=== PATIENT | female | born 1950 | race Caucasian/White ===

== ENCOUNTER → 2019-05-28 | Outpatient (CLI) | payer MEDICARE | END | disposition home or self-care (01) | LOC: LABPAT 17:14 | PROVIDERS: ATTEND Orthopaedic Surgery | DX: Z01.812 Encounter for preprocedural laboratory examination (principal) | CPT/HCPCS: 87070 ==

== ENCOUNTER 2020-10-15 12:24 | Inpatient (IN) | payer MEDICARE ==
--- NOTE | 2020-10-15 12:43 | ED ---
Fall HPI - General Stated Complaint: fall Time Seen by Provider: 10/15/20 12:24 Source: patient, EMS, RN notes reviewed Mode of arrival: EMS - History of Present Illness Initial Comments: This is a 69-year-old female history of chronic low back pain who just had an MRI this morning to evaluate the back when she lost her footing and fell and complains of severe left-sided hip pain. No head neck or other back pain no other complaints at this time. She was brought in by EMS was given pain medication he states this did help somewhat and does not require anything else at this time. MD Complaint: fall - Related Data Home Medications Medication Instructions Recorded Confirmed Albuterol Inhaler [Ventolin Hfa 2 puff INHALATION RT-QID PRN 10/15/20 10/15/20 Inhaler] Cyclobenzaprine [Flexeril] 10 mg PO HS 10/15/20 10/15/20 Furosemide [Lasix] 20 mg PO DAILY PRN 10/15/20 10/15/20 Gabapentin [Neurontin] 800 mg PO TID 10/15/20 10/15/20 HYDROcodone/APAP 5-325MG [[place] 1.5 tab PO TID PRN 10/15/20 10/15/20 5-325] Allergies Allergy/AdvReac Type Severity Reaction Status Date / Time adhesive Allergy Unknown Verified 10/15/20 13:33 latex Allergy Unknown Verified 10/15/20 13:33 Penicillins Allergy Unknown Verified 10/15/20 13:33 Review of Systems ROS Statement: Those systems with pertinent positive or pertinent negative responses have been documented in the HPI. ROS Other: All systems not noted in ROS Statement are negative. Past Medical History Additional Past Medical History / Comment(s): chronic neck, back and right knee pain History of Any Multi-Drug Resistant Organisms: None Reported Past Surgical History: Section Past Psychological History: No Psychological Hx Reported Smoking Status: Current every day smoker Past Alcohol Use History: None Reported Past Drug Use History: None Reported General Exam - General Exam Comments Initial Comments: This is a well-developed well-nourished awake alert oriented 3 female with a [place] Coma Scale of 15 Limitations: no limitations General appearance: alert, anxious, in distress Head exam: Present: atraumatic, normocephalic, normal inspection Eye exam: Present: normal appearance, PERRL, EOMI. Absent: scleral icterus, conjunctival injection, periorbital swelling ENT exam: Present: normal exam, mucous membranes moist Neck exam: Present: normal inspection. Absent: tenderness, meningismus, lymphadenopathy Respiratory exam: Present: normal lung sounds bilaterally. Absent: respiratory distress, wheezes, rales, rhonchi, stridor Cardiovascular Exam: Present: regular rate, normal rhythm, normal heart sounds. Absent: systolic murmur, diastolic murmur, rubs, gallop, clicks GI/Abdominal exam: Present: soft, normal bowel sounds. Absent: distended, tenderness, guarding, rebound, rigid Extremities exam: Present: tenderness, normal capillary refill, other (Is palpation over the left hip with flexion of the hip some external rotation was limited mobility secondary to pain.). Absent: full ROM, pedal edema, joint swelling, calf tenderness Back exam: Present: normal inspection Neurological exam: Present: alert, oriented X3, CN II-XII intact Psychiatric exam: Present: normal affect, normal mood Skin exam: Present: warm, dry, intact, normal color. Absent: rash Course Vital Signs 10/15/20 12:34 Temperature 98.1 F Pulse Rate 90 Respiratory 20 Rate Blood Pressure 128/80 O2 Sat by Pulse 88 L Oximetry Medical Decision Making - Medical Decision Making I did discuss findings with patient family as well as with neck branch who is covering for Dr. Tomlinson patient will be admitted with medical consultation for surgical clearance. - Radiology Data Radiology results: report reviewed (Imaging reviewed evidence of a surgical neck fracture left hip subcapital please see the complete report), image reviewed Disposition Clinical Impression: Fall, Closed left hip fracture Disposition: ADMITTED IP TO THIS HOSP Condition: Fair Referrals: Marya Meyer MD [Primary Care Provider] - 1-2 days
--- NOTE | 2020-10-15 13:27 | XR ---
EXAMINATION TYPE: XR chest 1V DATE OF EXAM: 10/15/2020 COMPARISON: 06/11/2019 HISTORY: 69-year-old female trauma after fall TECHNIQUE: Single frontal view of the chest is obtained. FINDINGS: Heart borderline enlarged. Tortuous/ectatic thoracic aorta, appearance increased from 06/11/2019, suspe ct projectional. Stable focal peripheral right basilar density, likely scarring. No pleural effusion or pneumothorax. Partially visualized ACDF hardware. IMPRESSION: When the patient is able, recommend dedicated high quality PA view of the chest to exclude any new ec coreen of the thoracic aorta. Suspect this to be due to magnification from AP technique and patient po sitioning. Otherwise, no acute process seen.
--- NOTE | 2020-10-15 13:29 | XR ---
EXAMINATION TYPE: AP view pelvis and 2 views left hip DATE OF EXAM: 10/15/2020 Comparison: None Clinical History: 69-year-old female with pain after Trauma Findings: Impacted, angulated, and proximally migrated transcervical femoral neck fracture. Mild degenerative s purring of both hips. Limited due to osteopenia and large patient body habitus. Impression: Impacted, angulated, and approximately migrated transcervical left femoral neck fracture. Underlying mild bilateral hip OA.
[2020-10-15] MEDS ORDERED: HYDROmorphone 1 MG/ML 1 ML SYRINGE IVP STA (14:02)
[2020-10-15] MEDS ORDERED: NALOXONE 0.4 MG/ML 1 ML VIAL IV PRN (14:07)
[2020-10-15] MEDS ORDERED: ALBUTEROL HFA INHALER INHALATION PRN (14:09)
[2020-10-15 14:33] LABS: Basophils # (A) 0.1 k/uL (0-0.2); Basophils % (A) 0 %; Eosinophils # (A) 0.4 k/uL (0-0.7); Eosinophils % (A) 3 %; HCT 38.4 % (34.0-46.0); Lymphocytes # (A) 1.5 k/uL (1.0-4.8); Lymphocytes % (A) 11 %; MCHC 33.9 g/dL (31.0-37.0); MCV 94.5 fL (80.0-100.0); Mean Platelet Volume 7.4; Monocytes # (A) 0.7 k/uL (0-1.0); Monocytes % (A) 5 %; Neutrophils # (A) 10.4 k/uL (1.3-7.7); Neutrophils % (A) 79 %; Platelet Count 296 k/uL (150-450); RBC 4.07 m/uL (3.80-5.40); RDW 12.6 % (11.5-15.5); WBC 13.1 k/uL (3.8-10.6)
[2020-10-15 14:44] LABS: Prothrombin Time 10.5 sec (9.0-12.0)
[2020-10-15 14:45] LABS: Partial Thromboplastin Time 23.2 sec (22.0-30.0)
[2020-10-15 14:48] LABS: ALT 15 U/L (4-34); AST 29 U/L (14-36); African American GFR (CKD) >90 (>60 ml/min/1.73 sqM); Albumin 3.9 g/dL (3.5-5.0); Alkaline Phosphatase 93 U/L (38-126); Anion Gap 5 mmol/L; Blood Urea Nitrogen 7 mg/dL (7-17); Calcium 9.1 mg/dL (8.4-10.2); Carbon Dioxide 30 mmol/L (22-30); Chloride 105 mmol/L (98-107); Creatine Kinase 51 U/L (30-135); Glucose 106 mg/dL (74-99); Non-African American GFR(CKD) 78 (>60 ml/min/1.73 sqM); Potassium 3.8 mmol/L (3.5-5.1); Sodium 140 mmol/L (137-145); Total Bilirubin 0.3 mg/dL (0.2-1.3); Total Protein 6.4 g/dL (6.3-8.2)
--- NOTE | 2020-10-15 14:53 | P.CONS ---
History of Present Illness - Reason for Consult Consult date: 10/15/20 Preoperative clearance - Chief Complaint Left hip pain - History of Present Illness This is a 69-year-old female with past medical history noted below who presented to the emergency room with left hip pain. Patient has problems with chronic low back pain and was scheduled for an MRI this afternoon that she sustained a fall at MRI facility and landed on her left side and immediately started having a lot of pain. She was brought into the emergency room and was found to have evidence of left hip fracture on x-ray. She'll be admitted to orthopedic with possible surgical intervention tomorrow. I was asked to see her for preoperative clearance. Patient is complaining of pain in her left hip mostly when she moves around in bed. She otherwise denies any chest pain or shortness of breath. Patient does not have any cardiac history. She said that once her doctor told her she may have had heart attack years ago according to EKG reading. Patient herself told me that she was never hospitalized for heart attack. She denies any history of CHF, diabetes, hypertension, or chronic kidney disease. She is only able to ambulate using a walker secondary to chronic low back pain but denies any exertional dyspnea or chest pain. Review of Systems Review of system: 14 points review of systems were obtained and were negative except to what were mentioned in the HPI. Past Medical History Additional Past Medical History / Comment(s): chronic neck, back and right knee pain History of Any Multi-Drug Resistant Organisms: None Reported Past Surgical History: Section Past Psychological History: No Psychological Hx Reported Smoking Status: Current every day smoker Past Alcohol Use History: None Reported Past Drug Use History: None Reported Medications and Allergies Home Medications Medication Instructions Recorded Confirmed Type Albuterol Inhaler [Ventolin Hfa 2 puff INHALATION RT-QID PRN 10/15/20 10/15/20 History Inhaler] Cyclobenzaprine [Flexeril] 10 mg PO HS 10/15/20 10/15/20 History Furosemide [Lasix] 20 mg PO DAILY PRN 10/15/20 10/15/20 History Gabapentin [Neurontin] 800 mg PO TID 10/15/20 10/15/20 History HYDROcodone/APAP 5-325MG [[place] 1.5 tab PO TID PRN 10/15/20 10/15/20 History 5-325] Allergies Allergy/AdvReac Type Severity Reaction Status Date / Time adhesive Allergy Unknown Verified 10/15/20 13:33 latex Allergy Unknown Verified 10/15/20 13:33 Penicillins Allergy Unknown Verified 10/15/20 13:33 Physical Exam Vitals: Vital Signs Temp Pulse Resp BP Pulse Ox 10/15/20 12:34 98.1 F 90 20 128/80 88 L Intake and Output 10/14/20 10/15/20 10/15/20 22:59 06:59 14:59 Other: Weight 76.43 kg General: The patient is awake and alert, in no distress Eye: there is normal conjunctiva bilaterally. Neck: The neck is supple, there is no JVD. Cardiovascular: Normal S1-S2, no S3-S4, no murmurs. Respiratory: Lungs clear to auscultation bilaterally Gastrointestinal: Abdomen is soft, nontender Musculoskeletal: There is no pedal edema. Neurological:. Speech is normal. Skin: Skin is warm and dry Results CBC & Chem 7: 10/15/20 14:15 10/15/20 14:15 Labs: Abnormal Lab Results - Last 24 Hours (Table) 10/15/20 10/15/20 Range/Units 14:15 14:15 WBC 13.1 H (3.8-10.6) k/uL Neutrophils # 10.4 H (1.3-7.7) k/uL Glucose 106 H (74-99) mg/dL Assessment and Plan Assessment: 1. Preoperative clearance: Patient is at an acceptable risk for low risk orthopedic surgery according to the RCRI score. 2. Left hip fracture, management per orthopedic surgery 3. Chronic low back pain 4. Tobacco abuse, counseled extensively to quit. Nicotine patch ordered Today, I reviewed her medication list and lab work results. Twelve-lead EKG showed normal sinus rhythm with no acute findings. Pain control and DVT prophylaxis per orthopedic. Thank you very much for the consultation. I will continue to follow up on the patient closely with you.
[2020-10-15 15:15] LABS: Appearance,Urine Clear (Clear); Bacteria,Urine Rare /hpf; Bilirubin,Urine Negative (Negative); Blood,Urine Negative (Negative); Color,Urine Yellow; Glucose,Urine (UA) Negative (Negative); Ketones,Urine Negative (Negative); Leukocyte Esterase,Urine Small (Negative); Mucus,Urine Rare /hpf; Nitrite,Urine Negative (Negative); Protein,Urine Negative (Negative); RBC,Urine 1 /hpf (0-5); Specific Gravity,Urine 1.015 (1.001-1.035); Squamous Epithelial Cell,Urine <1 /hpf (0-4); Urobilinogen,Urine <2.0 mg/dL (<2.0); WBC,Urine 1 /hpf (0-5)
[2020-10-15] MEDS: HYDROmorphone 1 MG/ML 1 ML SYRINGE IVP PRN ×2 (15:43→19:51)
--- NOTE | 2020-10-15 16:34 | P.HPOR ---
History of Present Illness H&P Date: 10/15/20 Chief Complaint: Left femoral neck fracture Patient is a 69-year-old female who presented to [facility] initially today for an MRI of her lumbar and cervical spine that was ordered by a different provider. While in the hospital, the patient did fall in the MRI area directly on her left side. She was unable to weight-bear at that time, so she was brought to the emergency room for evaluation. Upon arrival to the emergency room, imaging and lab tests are done. Images demonstrated a displaced left subcapital femur fracture. I was contacted by the emergency room staff and was able to review the case and discussed with attending Dr. Mcginnis. I was unable to evaluate patient in the emergency room at bedside, her was present at bedside. She is resting comfortably in bed, any movement though reproduces severe pain in the proximal aspect of the left lower extremity. Patient denies any pain involving the right lower extremity, bilateral upper extremities, new onset or acute cervical, thoracic or lumbar pain. Patient has a known history of cervical and lumbar pain. She admits to a previous cervical fusion done back in 2017 by a doctor in [facility]. She has been seeing a pain management doctor in [facility] for her chronic cervical and lumbar pain. She does take [place], Flexeril and gabapentin for this. Patient denies any previous orthopedic surgery involving the left lower extremity. Patient currently has no headaches, lightheadedness, chest pain, shortness of breath, nausea vomiting, fever or chills, loss of bowel or bladder function, genital or perianal numbness or tingling. Review of Systems Constitutional: Reports as per HPI Past Medical History Additional Past Medical History / Comment(s): chronic neck, back and right knee pain History of Any Multi-Drug Resistant Organisms: None Reported Past Surgical History: Section Past Psychological History: No Psychological Hx Reported Smoking Status: Current every day smoker Past Alcohol Use History: None Reported Past Drug Use History: None Reported Medications and Allergies Home Medications Medication Instructions Recorded Confirmed Type Albuterol Inhaler [Ventolin Hfa 2 puff INHALATION RT-QID PRN 10/15/20 10/15/20 History Inhaler] Cyclobenzaprine [Flexeril] 10 mg PO HS 10/15/20 10/15/20 History Furosemide [Lasix] 20 mg PO DAILY PRN 10/15/20 10/15/20 History Gabapentin [Neurontin] 800 mg PO TID 10/15/20 10/15/20 History HYDROcodone/APAP 5-325MG [[place] 1.5 tab PO TID PRN 10/15/20 10/15/20 History 5-325] Allergies Allergy/AdvReac Type Severity Reaction Status Date / Time adhesive Allergy Unknown Verified 10/15/20 13:33 latex Allergy Unknown Verified 10/15/20 13:33 Penicillins Allergy Unknown Verified 10/15/20 13:33 Physical Examination Left lower extremity: There are no obvious open lesions or sores visualized throughout the extremity. There is obvious shortening and external rotation of the leg compared to the contralateral side There is mild ecchymosis and soft tissue swelling of the proximal extremity Logroll maneuver reproduces severe pain in the groin, she is unable to straight leg raise. Range of motion of the knee was not assessed. Plantar flexion, dorsiflexion, EHL, FHL are intact. No obvious strength deficits appreciated with plantar flexion, dorsiflexion, EHL, FHL, strength testing was not assessed of the knee or hip. Compartments of the lower leg are soft, calf is soft, no tenderness with palpation. Sensory exam light touch throughout the extremity is intact, dorsalis pedis pulses 2+. General orthopedic exam: Range of motion in all major muscle groups is intact of the bilateral upper extremities, there is no point tenderness appreciated throughout the exam. Radial and ulnar pulses are 2+ bilaterally No skin lesions or areas of ecchymosis are present in the right lower extremity, she has no point tenderness throughout exam. Range of motion is intact in all major muscle groups of the right lower extremity. There is no appreciated strength deficits appreciated with hip flexion, knee flexion, knee extension, plantar flexion, dorsiflexion, EHL, FHL. Calf is soft, no tenderness with palpation. Her sensory exam to light touch is intact throughout the extremity. Her dorsalis pedis pulses 2+ Results - Labs Labs: Abnormal Lab Results - Last 24 Hours (Table) 10/15/20 10/15/20 10/15/20 Range/Units 14:15 14:15 14:15 WBC 13.1 H (3.8-10.6) k/uL Neutrophils # 10.4 H (1.3-7.7) k/uL Glucose 106 H (74-99) mg/dL Ur Leukocyte Esterase Small H (Negative) Urine Bacteria Rare H (None) /hpf Urine Mucus Rare H (None) /hpf H & H 10/15/20 Range/Units 14:15 Hgb 13.0 (11.4-16.0) gm/dL Hct 38.4 (34.0-46.0) % Coagulation 10/15/20 Range/Units 14:15 INR 1.0 (<1.2) Result Diagrams: 10/15/20 14:15 10/15/20 14:15 - Diagnostic results Hip x-ray: report reviewed, image reviewed (Pelvis x-ray along with AP x-ray of the left hip are obtained. Images demonstrate an obvious displaced subcapital femur fracture on the left side.) Assessment and Plan Assessment: Displaced left subcapital femur fracture Status post fall from standing Chronic cervical and lumbar pain, history of previous cervical fusion Other medical comorbidities Plan: I was able to discuss the case, including with physical exam findings and imaging studies my attending Dr. Mcginnis. We would like to proceed with surgical intervention, more specifically a left total hip arthroplasty. We plan to proceed with this on 10/16/2020. Risk and benefits of the procedure were discussed with the patient, this including but not excluding infection, blood loss, neurovascular injury, development of blood clots, need for subsequent surgery, and adequate healing of bone. Patient and are in good understanding would like to proceed. Obtain consent Nothing by mouth after midnight Urinary catheter placement Nonweightbearing left lower extremity GI and DVT prophylaxis, we'll begin subcu medication after surgery Other biomedical analytical scientist and recommendations PT/OT evaluation after surgery Discharge planning: Pending outpatient advances during hospital stay, may consider discharge home with home health care Time with Patient: Less than 30
[2020-10-15] MEDS: SODIUM CHLORIDE 0.9% 1,000 ML IV SCH ×2 (19:15→23:00)
[2020-10-15] MEDS: CYCLOBENZAPRINE 10 MG TAB PO SCH (20:59)
[2020-10-15] MEDS ORDERED: MORPHINE SULFATE 2 MG/ML SYRINGE IVP STA (22:24)
[2020-10-16] MEDS ORDERED: LORazepam 1 MG TAB PO STA (00:57)
[2020-10-16] MEDS: NICOTINE 7MG/24HR PATCH TRANSDERM SCH (01:23)
[2020-10-16] MEDS: HYDROmorphone 1 MG/ML 1 ML SYRINGE IVP PRN ×4 (01:27→23:17)
[2020-10-16] MEDS: SODIUM CHLORIDE 0.9% 1,000 ML IV SCH (06:25)
[2020-10-16] MEDS ORDERED: HYDROmorphone 1 MG/ML 1 ML SYRINGE IVP STA (08:22)
[2020-10-16] MEDS ORDERED: LACTATED RINGERS 1,000 ML IV ONE ×2 (10:52→12:56)
[2020-10-16] MEDS ORDERED: ONDANSETRON 4 MG/2 ML VIAL ONE (10:56)
[2020-10-16] MEDS ORDERED: ONDANSETRON 4 MG/2 ML VIAL IVP ONE (10:59)
[2020-10-16] MEDS ORDERED: fentaNYL (PF) 50 MCG/ML 2 ML AMP IVP ONE (11:00)
[2020-10-16] MEDS ORDERED: DEXAMETHASONE SOD PHOSPHATE 4 MG/ML 1 ML VIAL IVP ONE (11:00)
[2020-10-16] MEDS ORDERED: TRANEXAMIC ACID 1,000 MG in SODIUM CHLORIDE 0.9% 100 ML IVPB PRN (11:40)
[2020-10-16] MEDS ORDERED: MIDAZOLAM 2 MG/2 ML VIAL ONE (12:09)
[2020-10-16] MEDS ORDERED: PHENYLEPHRINE-0.9% NACL SYG 1,000 MCG/10 ML SYRINGE ONE (12:09)
[2020-10-16] MEDS ORDERED: TRANEXAMIC ACID 1,000 MG/10 ML VIAL ONE (12:09)
[2020-10-16] MEDS ORDERED: KETAMINE 10 MG/ML 20 ML VIAL ONE (12:09)
[2020-10-16] MEDS ORDERED: SODIUM CHLORIDE 0.9% 100 ML BAG ONE (12:09)
[2020-10-16] MEDS ORDERED: fentaNYL (PF) 50 MCG/ML 2 ML AMP ONE (12:09)
[2020-10-16] MEDS ORDERED: PROPOFOL 10 MG/ML 20 ML VIAL IV ONE (12:09)
[2020-10-16] MEDS ORDERED: CLINDAMYCIN 150 MG/ML 4 ML VIAL IVPB ONE (12:34)
[2020-10-16] MEDS ORDERED: ceFAZolin 1,000 MG in SODIUM CHLORIDE 0.9% 1,000 ML IRRIGATION ONE (12:48)
[2020-10-16] MEDS ORDERED: CLINDAMYCIN 600 MG in SODIUM CHLORIDE 0.9% 1,000 ML IRRIGATION ONE (12:48)
[2020-10-16] MEDS ORDERED: HYDROcodone/APAP 7.5-325MG 1 EACH TAB PO PRN (13:45)
[2020-10-16] MEDS ORDERED: HYDROmorphone 0.2 MG/1 ML SYRINGE IVP PRN (13:45)
[2020-10-16] MEDS ORDERED: NALOXONE 0.4 MG/ML 1 ML VIAL IV PRN (13:45)
--- NOTE | 2020-10-16 14:06 | P.OP ---
Date of Procedure: 10/16/20 Preoperative Diagnosis: Displaced left subcapital femoral neck fracture Postoperative Diagnosis: Same Procedure(s) Performed: Left total hip arthroplastypress-fitlateral approach Implants: [employer] [place] size 12 high offset press-fit collared femoral stem, 36+5 cobalt chrome femoral head, 52 mm [place] acetabular shell with neutral polyethylene liner. Anesthesia: spinal Surgeon: Adeel Mcginnis Night Supervisor #1: Delroy Toure Estimated Blood Loss (ml): 200 Pathology: other (Femoral head) Condition: stable Disposition: PACU Indications for Procedure: The patient 69-year-old female presents after falling injuring her left hip and was noted have a displaced left subcapital femoral neck fracture. A discussion of the risks and benefits of operative intervention was made with patient. She opted to proceed with surgery. Operative options were discussed. She opted to proceed with total hip arthroplasty. Specific risks to include infection, neurovascular injury, development of blood clots, possible leg length discrepancy, possible instability need for subsequent procedures was discussed. Informed consent was obtained. Operative Findings: As below Description of Procedure: The patient was brought to the operating room, and after induction of spinal anesthesia was placed in a lateral decubitus position. The bony prominences were appropriately padded. The pelvis was stable perpendicular to the floor with a pegboard. The left lower extremity was prepped and draped in normal fashion. A 12 cm incision was then made centered over the greater trochanter extending superiorly to level the ASIS and distally in line with the femoral shaft. The skin and subcutaneous tissues were divided sharply. Electrocautery was used for hemostasis. The fascia vika and gluteus juilan fascia was split in line with the skin incision. The muscle fibers were bluntly dissected proximally. A self-retaining retractor was placed. The anterior and posterior margins of the gluteus medius muscles identified and the anterior two thirds was detached from the greater trochanter with electrocautery. The gluteus minimus tendon was identified and detached in a similar fashion. A wide capsulotomy was performed. The femoral neck fracture was identified in the lower neck cut was made approximately 1 1/2 cm above the level of the lesser trochanter with a sagittal saw at a 45 the shaft. The head was then extracted with a corkscrew. Attention was then paid towards preparing the acetabular. Anterior and posterior retractors were placed. The remaining capsular labral tissues debrided sharply clearly defining the acetabular margins. Began reaming with a 45 mm reamer taking care to initially medialize, then reaming at 45 of abduction and 20 of anteversion. Sequential reaming is performed up to 51 mm. This was down to bleeding bony surface. A trial 52 mm acetabular shell was inserted at 45 of abduction and 20 of anteversion. This was fully seated. There was good rim fit and stability. A neutral polyethylene liner was then impacted. Care taken to avoid any soft tissue interposition. Attention was then paid towards preparing the proximal femur. A box chisel was used to open the metaphyseal region. A canal finder was used to find the femoral canal. Sequential broaching was performed up to a size 12. This is placed in 15 of anteversion with the leg perpendicular floor judging off the trans-epicondylar axis. There is good rotational stability. A calcar mill was used to fashion the medial calcar. A trial standard neck along with a 36 mm + 5 trial head was placed. The hip was gently reduced. It was taken through range of motion. I felt to be stable in flexion and extension with internal and external rotation. I felt there was adequate orthodoxy of soft tissue tension. The hip was gently dislocated. The trial components removed. Pulsatile lavage was utilized. The final size 12 high offset collared femoral stem was inserted again with the leg perpendicular to the floor in 15 of anteversion. Again there was good rotational stability. A 36 mm + 5 cobalt chrome femoral head was gently impacted. The hip was gently reduced. Again it was taken through motion and felt to be stable in flexion and extension with internal and external rotation. Pulsatile lavage was again utilized. With the leg in abduction the gluteus minimus and medius tendons reattached to the greater trochanter with #2 Ethibond suture. There was minimal drainage therefore a deep drain was not placed. The fascia vika and gluteus julian fascia was closed with #2 Ethibond suture. The subcutaneous tissues were reapproximated interrupted 2-0 Vicryl sutures. The skin was reapproximated with 3-0 subcuticular strata fix suture. Skin tape and adhesive was applied. A sterile dressing was applied. The patient was awoken from sedation and transferred to recovery room in good condition. Blood loss was estimated 200 mL. No complications were incurred. Sponge and needle counts were correct in the case. Delroy YEBOAH assisted during the major composes case to include exposure, implantation, and closure.
--- NOTE | 2020-10-16 14:30 | XR ---
Limited left hip HISTORY: Status post left hip hemiarthroplasty Single frontal view of the left hip Patient shows post left hip arthroplasty change. There is lucency in the soft tissues. Anatomic align ment is present. Bone mineralization is reduced. IMPRESSION: Orthopedic follow-up.
[2020-10-16 15:01] LABS: Urine Alcohol Negative (Negative); Urine Barbiturate Negative (Negative); Urine Cocaine Negative (Negative); Urine Methadone Negative (Negative); Urine Opiates Positive (Negative); Urine Phencyclidine Negative (Negative)
--- NOTE | 2020-10-16 15:20 | P.PN ---
Subjective Progress Note Date: 10/16/20 Patient is scheduled for surgery today. No acute events overnight. Objective - Vital Signs Vital signs: Vital Signs Temp 98 F 10/16/20 14:01 Pulse 106 H 10/16/20 14:31 Resp 16 10/16/20 14:31 BP 109/59 10/16/20 14:31 Pulse Ox 95 10/16/20 14:31 Intake & Output 10/15/20 10/16/20 10/16/20 18:59 06:59 18:59 Intake Total 1101 Output Total 1999 275 Balance -1999 826 Weight 76.43 kg 76.43 kg 76.43 kg Intake: IV 1101 Output: Urine 1999 75 Estimated Blood Loss 200 Other: Voiding Method Indwelling Catheter Indwelling Catheter - Exam General: The patient is awake and alert, in no distress Eye: there is normal conjunctiva bilaterally. Neck: The neck is supple, there is no JVD. Cardiovascular: Normal S1-S2, no S3-S4, no murmurs. Respiratory: Lungs clear to auscultation bilaterally Gastrointestinal: Abdomen is soft, nontender Musculoskeletal: There is no pedal edema. Neurological:. Speech is normal. Skin: Skin is warm and dry - Labs CBC & Chem 7: 10/15/20 14:15 10/15/20 14:15 Labs: Abnormal Lab Results - Last 24 Hours (Table) 10/15/20 Range/Units 23:36 Urine Opiates Screen Positive A (Negative) ng/mL Assessment and Plan Assessment: 1. Left hip fracture, management per orthopedic surgery. Plan for OR today. 2. Chronic low back pain 3. Tobacco abuse, counseled extensively to quit. Nicotine patch ordered Today, I reviewed her medication list and lab work results. Continue current regimen. Pain control and DVT prophylaxis per orthopedic. I will continue to follow up on the patient closely with you.
[2020-10-16] MEDS: GABAPENTIN 400 MG CAP PO SCH ×2 (16:56→20:49)
[2020-10-16] MEDS: CYCLOBENZAPRINE 10 MG TAB PO SCH (20:49)
[2020-10-16] MEDS: SENNOSIDES-DOCUSATE SODIUM 1 EACH TAB PO SCH (20:49)
[2020-10-16] MEDS: ENOXAPARIN 40 MG/0.4 ML SYRINGE SQ SCH (23:16)
[2020-10-17] MEDS: HYDROmorphone 1 MG/ML 1 ML SYRINGE IVP PRN ×3 (03:28→10:47)
[2020-10-17 05:24] VITALS: RESP 18
[2020-10-17 07:40] LABS: INR 1.1 (<1.2); Prothrombin Time 11.5 sec (9.0-12.0)
[2020-10-17 07:52] LABS: Basophils % (A) 0 %; Eosinophils % (A) 0 %; HCT 33.8 % (34.0-46.0); HGB 11.2 gm/dL (11.4-16.0); Lymphocytes # (A) 1.8 k/uL (1.0-4.8); Lymphocytes % (A) 10 %; MCH 31.7 pg (25.0-35.0); MCHC 33.1 g/dL (31.0-37.0); MCV 95.5 fL (80.0-100.0); Mean Platelet Volume 8.3; Monocytes # (A) 1.2 k/uL (0-1.0); Monocytes % (A) 6 %; Neutrophils # (A) 14.7 k/uL (1.3-7.7); Neutrophils % (A) 82 %; Platelet Count 268 k/uL (150-450); RBC 3.54 m/uL (3.80-5.40); RDW 12.9 % (11.5-15.5)
[2020-10-17] MEDS: HYDROcodone/APAP 5-325MG 1 EACH TAB PO PRN ×2 (08:06→13:27)
[2020-10-17] MEDS: GABAPENTIN 400 MG CAP PO SCH ×3 (08:07→20:37)
[2020-10-17] MEDS: NICOTINE 7MG/24HR PATCH TRANSDERM SCH (08:07)
--- NOTE | 2020-10-17 09:28 | P.PN ---
Subjective Progress Note Date: 10/17/20 Principal diagnosis: Status post left total hip arthroplasty patient was examined at bedside today, she is resting in her hospital chair. She was just up working with physical therapy. She is having minimal pain in the left hip at this time. She denies any headaches, lightheadedness, chest pain, new onset shortness of breath. She is passing gas, urinary catheter still in place. Objective - Vital Signs Vital signs: Vital Signs Temp 98.4 F 10/17/20 04:12 Pulse 120 H 10/17/20 04:12 Resp 18 10/17/20 04:12 BP 116/74 10/17/20 04:12 Pulse Ox 92 L 10/17/20 04:12 Intake & Output 10/16/20 10/17/20 10/17/20 18:59 06:59 18:59 Intake Total 1101 Output Total 775 550 Balance 326 -550 Weight 76.43 kg Intake: IV 1101 Output: Urine 575 550 Estimated Blood Loss 200 Other: Voiding Method Indwelling Catheter Indwelling Catheter - Exam Left lower extremity: Incision is clean, dry, and intact. The exofin fusion tape is in good condition. There is minimal soft tissue swelling and ecchymosis surrounding the medial and lateral aspects of the incision. Calf is soft, no tenderness with palpation. Plantar flexion, dorsiflexion, EHL, FHL are intact. Sensory exam to light touch throughout the extremity is intact, dorsal pedis pulses 2+. - Labs CBC & Chem 7: 10/17/20 06:41 10/15/20 14:15 Labs: Abnormal Lab Results - Last 24 Hours (Table) 10/15/20 10/17/20 Range/Units 23:36 06:41 WBC 18.0 H (3.8-10.6) k/uL RBC 3.54 L (3.80-5.40) m/uL Hgb 11.2 L (11.4-16.0) gm/dL Hct 33.8 L (34.0-46.0) % Neutrophils # 14.7 H (1.3-7.7) k/uL Monocytes # 1.2 H (0-1.0) k/uL Urine Opiates Screen Positive A (Negative) ng/mL Assessment and Plan Assessment: Postoperative day 1 status post left total hip arthroplasty Plan: Pain control, continue current medication GI and DVT prophylaxis, continue current medication Postoperative dressing was changed today, dressing changes every 2 days Encourage incentive spirometer Weight-bear as tolerated with walker, continue working with physical therapy Other medical specialty recommendations Discharge planning: Depending on how patient progresses over the weekend, may co nsider discharge to rehab versus home with home health care Time with Patient: Less than 30
--- NOTE | 2020-10-17 10:27 | P.PN ---
Subjective Progress Note Date: 10/17/20 Patient is doing well today. She was up in the chair when I saw her. Her pain is relatively well-controlled. Objective - Vital Signs Vital signs: Vital Signs Temp 98.4 F 10/17/20 04:12 Pulse 120 H 10/17/20 08:40 Resp 18 10/17/20 08:40 BP 116/74 10/17/20 04:12 Pulse Ox 92 L 10/17/20 04:12 Intake & Output 10/16/20 10/17/20 10/17/20 18:59 06:59 18:59 Intake Total 1101 Output Total 775 550 Balance 326 -550 Weight 76.43 kg Intake: IV 1101 Output: Urine 575 550 Estimated Blood Loss 200 Other: Voiding Method Indwelling Catheter Indwelling Catheter Indwelling Catheter - Exam General: The patient is awake and alert, in no distress Eye: there is normal conjunctiva bilaterally. Neck: The neck is supple, there is no JVD. Cardiovascular: Normal S1-S2, no S3-S4, no murmurs. Respiratory: Lungs clear to auscultation bilaterally Gastrointestinal: Abdomen is soft, nontender Musculoskeletal: There is no pedal edema. Neurological:. Speech is normal. Skin: Skin is warm and dry - Labs CBC & Chem 7: 10/17/20 06:41 10/15/20 14:15 Labs: Abnormal Lab Results - Last 24 Hours (Table) 10/15/20 10/17/20 Range/Units 23:36 06:41 WBC 18.0 H (3.8-10.6) k/uL RBC 3.54 L (3.80-5.40) m/uL Hgb 11.2 L (11.4-16.0) gm/dL Hct 33.8 L (34.0-46.0) % Neutrophils # 14.7 H (1.3-7.7) k/uL Monocytes # 1.2 H (0-1.0) k/uL Urine Opiates Screen Positive A (Negative) ng/mL Assessment and Plan Assessment: This is a 69-year-old female that presented to the emergency room after sustaining a fall while trying to get an MRI at the local radiology center. She was evaluated in the ER and admitted to the hospital for further management of her medical problems noted below. 1. Left hip fracture, postoperative day #1 status post left total hip ar throplasty. Postoperative care, Pain controlled, and DVT prophylaxis per primary team. PT/OT evaluation. 2. Chronic low back pain 3. Tobacco abuse, counseled extensively to quit. Nicotine patch ordered Today, I reviewed her medication list and lab work results. Continue current regimen. Discharge planning per primary team.
[2020-10-17] MEDS: HYDROcodone/APAP 7.5-325MG 1 EACH TAB PO PRN ×2 (17:28→21:32)
[2020-10-17] MEDS: CYCLOBENZAPRINE 10 MG TAB PO SCH (20:37)
[2020-10-17] MEDS: SENNOSIDES-DOCUSATE SODIUM 1 EACH TAB PO SCH (20:37)
[2020-10-17] MEDS: ENOXAPARIN 40 MG/0.4 ML SYRINGE SQ SCH (23:40)
[2020-10-18] MEDS: HYDROcodone/APAP 7.5-325MG 1 EACH TAB PO PRN ×2 (03:50→08:29)
[2020-10-18 04:45] VITALS: BP 120/81; TEMP 98.4
[2020-10-18 05:39] LABS: Prothrombin Time 10.9 sec (9.0-12.0)
[2020-10-18] MEDS: NICOTINE 7MG/24HR PATCH TRANSDERM SCH (08:16)
[2020-10-18] MEDS: GABAPENTIN 400 MG CAP PO SCH (08:30)
[2020-10-18 10:07] VITALS: PULSE 111
--- NOTE | 2020-10-18 10:14 | P.PN ---
Subjective Progress Note Date: 10/18/20 Principal diagnosis: Status post left total hip arthroplasty patient was examined at bedside today, she is resting in her hospital chair. She was just up working with physical therapy. She is having minimal pain in the left hip at this time. She denies any headaches, lightheadedness, chest pain, new onset shortness of breath. Objective - Vital Signs Vital signs: Vital Signs Temp 98.4 F 10/18/20 04:44 Pulse 111 H 10/18/20 08:45 Resp 18 10/18/20 08:45 BP 120/81 10/18/20 04:44 Pulse Ox 93 L 10/18/20 04:44 Intake & Output 10/17/20 10/18/20 10/18/20 18:59 06:59 18:59 Intake Total 360 Output Total 2100 600 Balance -1740 -600 Intake: Oral 360 Output: Urine 2100 600 Uretheral (Kennedy) 600 Other: Voiding Method Indwelling Catheter Bedside Commode Bedside Commode # Voids 3 1 - Exam Left lower extremity: Incision is clean, dry, and intact. The exofin fusion tape is in good condition. There is minimal soft tissue swelling and ecchymosis surrounding the medial and lateral aspects of the incision. Calf is soft, no tenderness with palpation. Plantar flexion, dorsiflexion, EHL, FHL are intact. Sensory exam to light touch throughout the extremity is intact, dorsal pedis pulses 2+. - Labs CBC & Chem 7: 10/17/20 06:41 10/15/20 14:15 Assessment and Plan Assessment: Postoperative day #2 status post left total hip arthroplasty Plan: Pain control, plan for discharge home on Milo 5 mg/325 mg GI and DVT prophylaxis, aspirin 325 mg daily Postoperative dressing was changed today, dressing changes every 2 days Encourage incentive spirometer Weight-bear as tolerated with walker, continue working with physical therapy Other medical specialty recommendations Discharge planning: Plan for discharge home today
--- NOTE | 2020-10-18 10:22 | P.DS ---
Providers Date of admission: 10/15/20 14:07 Expected date of discharge: 10/18/20 Attending physician: Adeel Mcginnis Consults: 10/15/20 14:07 Consult Physician Routine Consulting Provider: Drew Lazar Consult Reason/Comments: Medical clearance for surgery Do you want consulting provider notified?: Already Contacted Primary care physician: Marya [facility] Hospital Course: Date of admission: 10/15/2020 Date of discharge: 10/18/2020 Admission diagnosis: Displaced left subcapital femur fracture Discharge diagnosis: Status post left total hip arthroplasty Attending physician: Dr. Mcginnis Surgical procedures: Left total hip arthroplasty Brief history: Patient is a 69-year-old female who presented to [facility] on 10/15/2020 after falling and injuring her left lower extremity. It was determined she had a displaced left subcapital femur fracture, she was admitted under orthopedic care. Surgical interventions were discussed, we proceeded with a left total hip arthroplasty on 10/16/2020. Hospital course: Details of patient's surgery can be found in operative report. Patient tolerated the procedure well and was subsequently transported to [facility] floor. Patient's orthopeidc and medical care was provided daily. Patient had daily laboratory tests performed for evaluation of overall blood counts. Patient had daily physical therapy to include strengthening range of motion as well as education with walker ambulation. Patient was treated with Lovenox for their postoperative DVT prophylaxis during their inpatient stay. Patient was noted to have a relatively uneventful postoperative course. Patient reported satisfactory pain control with oral pain medications by postoperative day 0. Patient showed satisfactory progress with physical therapy. Patient moved steadily through the program and had no difficulty meeting the goals by postoperative day 2. Given patient's otherwise satisfactory course and having met physical therapy goals, plan is to discharge patient home on postoperative day 2. Discharge condition/disposition: Patient will be discharged home in stable condition. Discharge medications: Instructions are given on resumption of patient's normal daily medications per primary care recommendation, in addition patient will be prescribed Chantilly 5 mg/325 mg, Colace 100 mg, aspirin 325 mg, Flexeril 10 mg, gabapentin 800 mg. Discharge instructions: 1. Wound care and infection precautions, keep incision dry and covered while showering, no lotions, creams, moisturizers. No soaking, tubs, pools, hottubs. Do not scrub over the incision. 2. Weight-bear as tolerated with walker / cane until follow-up. 3. Ice and elevate when necessary. Do not exceed 20 minutes per hour with ice pack. 4. Utilize compression sleeve until seen at first follow up appointment. 5. Visiting nursing care. 6. Home physical therapy. 7. Pain meds and anticoagulants per prescription. 8. Pain medication has potential to cause constipation. Increase oral fluid and fiber intake. Contact primary care provider if you have not had a bowel movement within 48 hours after discharge 9. No anti-inflammatory medication until discussed at first post operative visit, this including Motrin, Aleve, Mobic, Diclofenac. 10. Follow up in office at 2 weeks postop with Jaziel Turner PA-C/Delroy Villatoro 11. Follow up with your primary care doctor 7-10 days after discharge. 12. Contact [facility] with any questions, . Procedures: Left total hip arthroplasty Patient Condition at Discharge: Fair Plan - Discharge Summary New Discharge Prescriptions: New Aspirin 325 mg PO DAILY #30 tab Cyclobenzaprine [Flexeril] 10 mg PO HS PRN #21 tab PRN Reason: Muscle Spasm Gabapentin [Neurontin] 800 mg PO TID #30 tab HYDROcodone/APAP 5-325MG [Chantilly 5-325] 1 - 2 tab PO Q6HR PRN #42 tab PRN Reason: Pain Docusate [Colace] 100 mg PO DAILY #30 capsule No Action HYDROcodone/APAP 5-325MG [Chantilly 5-325] 1.5 tab PO TID PRN PRN Reason: Pain Albuterol Inhaler [Ventolin Hfa Inhaler] 2 puff INHALATION RT-QID PRN PRN Reason: Shortness Of Breath Gabapentin [Neurontin] 800 mg PO TID Furosemide [Lasix] 20 mg PO DAILY PRN PRN Reason: Edema Cyclobenzaprine [Flexeril] 10 mg PO HS Discharge Medication List Albuterol Inhaler [Ventolin Hfa Inhaler] 2 puff INHALATION RT-QID PRN 10/15/20 [History] Cyclobenzaprine [Flexeril] 10 mg PO HS 10/15/20 [History] Furosemide [Lasix] 20 mg PO DAILY PRN 10/15/20 [History] Gabapentin [Neurontin] 800 mg PO TID 10/15/20 [History] HYDROcodone/APAP 5-325MG [Chantilly 5-325] 1.5 tab PO TID PRN 10/15/20 [History] Aspirin 325 mg PO DAILY #30 tab 10/18/20 [Rx] Cyclobenzaprine [Flexeril] 10 mg PO HS PRN #21 tab 10/18/20 [Rx] Docusate [Colace] 100 mg PO DAILY #30 capsule 10/18/20 [Rx] Gabapentin [Neurontin] 800 mg PO TID #30 tab 10/18/20 [Rx] HYDROcodone/APAP 5-325MG [Chantilly 5-325] 1 - 2 tab PO Q6HR PRN #42 tab 10/18/20 [Rx] Follow up Appointment(s)/Referral(s): Marya Meyer MD [Primary Care Provider] - 1-2 days Javier Turner PAC [PHYSICIAN MILLING SUPERVISOR] - 2 Weeks Activity/Diet/Wound Care/Special Instructions: Orthopedic Discharge Instructions: 1. Wound care and infection precautions, keep incision dry and covered while showering, no lotions, creams, moisturizers. No soaking, pools, hot tubs. Do not scrub over incision. 2. Weight-bear as tolerated with walker / cane until follow-up. 3. Ice and elevate when necessary. Do not exceed 20 minutes per hour with ice pack. 4. Utilize compression sleeve until seen at first follow up appointment. 5. Pain meds and anticoagulants per prescription. 6. Pain medication has potential to cause constipation. Increase oral fluid and fiber intake. Contact primary care provider if you have not had a bowel movement within 48 hours after discharge. 7. No anti-inflammatory medication until discussed at first post operative visit, this including Motrin, Aleve, Mobic, Diclofenac. 8. Follow up in office at 2 weeks postop with Jaziel Turner PA-C/Delroy Toure PA-C 9. Follow up with your primary care doctor 7-10 days after discharge. 10. Contact [facility] with any questions, . Discharge Disposition: HOME WITH HOME HEALTH SERVICES
--- NOTE | 2020-10-18 12:19 | P.PN ---
Subjective Progress Note Date: 10/18/20 Patient is doing well today. She is today. Objective - Vital Signs Vital signs: Vital Signs Temp 98.4 F 10/18/20 04:44 Pulse 111 H 10/18/20 08:45 Resp 18 10/18/20 08:45 BP 120/81 10/18/20 04:44 Pulse Ox 93 L 10/18/20 04:44 Intake & Output 10/17/20 10/18/20 10/18/20 18:59 06:59 18:59 Intake Total 360 Output Total 2100 600 Balance -1740 -600 Intake: Oral 360 Output: Urine 2100 600 Uretheral (Kennedy) 600 Other: Voiding Method Indwelling Catheter Bedside Commode Bedside Commode # Voids 3 1 - Exam General: The patient is awake and alert, in no distress Eye: there is normal conjunctiva bilaterally. Neck: The neck is supple, there is no JVD. Cardiovascular: Normal S1-S2, no S3-S4, no murmurs. Respiratory: Lungs clear to auscultation bilaterally Gastrointestinal: Abdomen is soft, nontender Musculoskeletal: There is no pedal edema. Neurological:. Speech is normal. Skin: Skin is warm and dry - Labs CBC & Chem 7: 10/17/20 06:41 10/15/20 14:15 Assessment and Plan Assessment: This is a 69-year-old female that presented to the emergency room after sustaining a fall while trying to get an MRI at the local radiology center. She was evaluated in the ER and admitted to the hospital for further management of her medical problems noted below. 1. Left hip fracture, postoperative day #2 status post left total hip arthroplasty. Postoperative care, Pain controlled, and DVT prophylaxis per primary team. PT/OT evaluation. 2. Chronic low back pain 3. Tobacco abuse, counseled extensively to quit. Nicotine patch ordered Patient is medically cleared for discharge home. Resume home medications.
== END 2020-10-18 13:15 | disposition home health service (06) | DRG 522 ==
LOC: EC 12:24 → 5NMEDONC 14:07
PROVIDERS: ADMIT Orthopaedic Surgery; ATTEND Orthopaedic Surgery
PROC: 0SRB02A Replacement of Left Hip Joint with Metal on Polyethylene Synthetic Substitute, Uncemented, Open Approach (ICD-10-PCS; principal; 2020-10-16 11:05)
DX: S72.012A Unspecified intracapsular fracture of left femur, initial encounter for closed fracture (principal); J44.9 Chronic obstructive pulmonary disease, unspecified; F17.210 Nicotine dependence, cigarettes, uncomplicated; I25.10 Atherosclerotic heart disease of native coronary artery without angina pectoris; G89.29 Other chronic pain; M54.5 Low back pain; M54.2 Cervicalgia; M25.561 Pain in right knee; I25.2 Old myocardial infarction; Z71.6 Tobacco abuse counseling; Z79.899 Other long term (current) drug therapy; Z98.1 Arthrodesis status; Z98.891 History of uterine scar from previous surgery; W18.30XA Fall on same level, unspecified, initial encounter; Y92.538 Other ambulatory health services establishments as the place of occurrence of the external cause; Z91.040 Latex allergy status; Z88.0 Allergy status to penicillin; Z91.048 Other nonmedicinal substance allergy status
CPT/HCPCS: 71045; 73501; 73502; 80053; 80306; 81001; 82550; 85025; 85610; 85730; 86850; 86900; 86901; 88305; 88311; 93005; 94640; 94760; 99285

== ENCOUNTER → 2024-07-16 | Outpatient (CLI) | payer MEDICARE ==
--- NOTE | 2024-07-16 21:48 | XR ---
EXAMINATION TYPE: XR lumbar spine 2 or 3V DATE OF EXAM: 07/16/2024 4:29 PM COMPARISON: None. CLINICAL INDICATION: Female, 73 years old with history of M54.59 OTHER LOW BACK PAIN, pain TECHNIQUE: 3 view(s) obtained. FINDINGS: Scoliosis is present. Degenerative disc changes with vacuum disc phenomenon is present at L3-4 clerical adjuster iorly L2-3 through the L1-2 level and to a mild degree anterior L4-5. There is loss of disc height th roughout the lumbar spine. Vertebral body heights are preserved. There are 5 lumbar-type vertebral tunde dies. Pedicles are intact. IMPRESSION: 1. Degenerative disc changes and scoliosis lumbar spine. Follow-up MRI can be performed as clinicall y indicated. [facility], , 07/16/2024 9:46 PM
== END | disposition home or self-care (01) ==
LOC: RADXRMAIN 16:06
PROVIDERS: ATTEND Family Medicine
DX: M51.360 Other intervertebral disc degeneration, lumbar region with discogenic back pain only (principal); M41.86 Other forms of scoliosis, lumbar region
CPT/HCPCS: 72100

== ENCOUNTER → 2024-09-17 | Outpatient (CLI) | payer MEDICARE ==
--- NOTE | 2024-09-19 22:40 | MR ---
EXAMINATION TYPE: MR lumbar spine wo con DATE OF EXAM: 09/17/2024 6:17 PM COMPARISON: None. CLINICAL INDICATION: Female, 73 years old with history of M54.50 LOW BACK PAIN, UNSPECIFIED, low back pain that radiates down both legs. TECHNIQUE: Multiplanar, multisequence images of the lumbar spine were acquired. IV Contrast: mL (None, if empty) FINDINGS: Cord ends at the L1-L2 level. L5-S1: There is loss of disc height is level. No focal disc herniation is evident. Facet hypertrophy and mild posterior lateral thecal sac compression. Severe right and moderate left foraminal stenosis is present. L4-L5: Broad-based disc bulge and mild anterior thecal sac compression. There is disc space narrowing . Facet hypertrophy has posterior lateral thecal sac compression. Spinal canal narrowing in the sagit saw plane appears to be present. L3-L4: There is loss of disc height is level. Facet hypertrophy has right posterior lateral thecal sa c compression. Facet hypertrophy extending superiorly as well with right lateral thecal sac compressi on. Severe right and moderate to severe left foraminal stenosis is present. AP spinal canal narrowing is present L2-L3: No focal disc herniation or significant disc bulge. Facet hypertrophy is mild posterior latera l thecal sac compression. L1-L2: Disc space narrowing is present no focal disc herniation or significant disc bulge. Severe for aminal stenosis is present T12-L1: No focal disc herniation or significant disc bulge. No spinal canal stenosis or foraminal david nosis. There is some disc desiccation present. IMPRESSION: 1. Facet hypertrophy contributing to posterior lateral thecal sac compression. At the L3-4 level zainab re right facet hypertrophy has lateral thecal sac impression and extends superiorly. 2. Spinal canal narrowing due to disc bulge and facet hypertrophy L3-4. 3. Multilevel severe foraminal stenosis at multiple levels discussed above. Correlate with radicular symptoms [facility], , 09/19/2024 10:38 PM
== END | disposition home or self-care (01) ==
LOC: RADMRIMAIN 16:50
PROVIDERS: ATTEND Family Medicine
DX: M47.816 Spondylosis without myelopathy or radiculopathy, lumbar region (principal); M51.360 Other intervertebral disc degeneration, lumbar region with discogenic back pain only; M99.73 Connective tissue and disc stenosis of intervertebral foramina of lumbar region; M48.061 Spinal stenosis, lumbar region without neurogenic claudication
CPT/HCPCS: 72148